=== PATIENT | male | born 1955 | race Caucasian/White ===

== ENCOUNTER 2019-10-12 19:27 | Observation (INO) | payer BC ==
[~2019-10-12 19:27] MED LIST: GLYCOPYRROLATE 1 MG/5 ML VIAL ONE; NEOSTIGMINE METHYLSULFATE 10 MG/10 ML VIAL ONE; PHENYLEPHRINE HCL INJ/PF 10 MG/1 ML SDV ONE
[2019-10-12] MEDS ORDERED: DEXTROSE 5%-LACTATED RINGERS 1,000 ML IV PRN (19:48)
[2019-10-12 20:02] LABS: ABSOLUTE BASOPHILS # (AUTO) 0.1 10^3/uL (0.0-0.2); ABSOLUTE EOSINOPHILS # (AUTO) 0.1 10^3/uL (0.0-0.6); ABSOLUTE LYMPHOCYTES (AUTO) 2.5 10^3/uL (0.5-4.7); ABSOLUTE MONOCYTES (AUTO) 1.7 10^3/uL (0.1-1.4); ABSOLUTE NEUT (AUTO) 12.5 10^3/uL (1.7-8.2); BASOPHILS % (AUTO) 0.4 % (0-2); EOSINOPHILS % (AUTO) 0.3 % (0-6); HEMATOCRIT 42.1 % (37.9-51.0); HEMOGLOBIN 14.7 g/dL (13.5-17.0); LYMPHOCYTES % (AUTO) 14.9 % (13-45); MEAN CORPUSCULAR HEMOGLOBIN 32.6 pg (27.0-33.4); MEAN CORPUSCULAR HGB CONC 34.9 g/dL (32.0-36.0); MEAN CORPUSCULAR VOLUME 94 fl (80-97); PLATELET COUNT 223 10^3/uL (150-450); RED CELL DISTRIBUTION WIDTH 12.6 % (11.5-14.0); SEGMENTED NEUTROPHILS % (AUTO) 74.4 % (42-78); TOTAL CELLS COUNTED % (AUTO) 100 %; WHITE BLOOD COUNT 16.8 10^3/uL (4.0-10.5)
[2019-10-12] MEDS ORDERED: RINGERS SOLUTION,LACTATED 1,000 ML IV PRN (20:06)
--- NOTE | 2019-10-12 20:23 | PDOC H&P ---
History of Present Illness Admission Date/PCP: 10/12/19 19:27 Patient complains of: abdominal pain History of Present Illness: LAURENT DAS is a 64 year old male Patient presents to [facility] for direct admit complaining of a 1 day history of abdominal pain, minimal anorexia, pain localizing to the right lower quadrant with tenderness. 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 He obtained a CT scan of the abdomen and pelvis which reportedly shows acute appendicitis, specifically periappendiceal stranding, thickened appendiceal wall, no evidence of perforation. The patient appendectomy at [facility]. Denies history of trauma, previous GI symptoms, constipation, or previous abdominal surgery. Past Medical History Past Medical History: Hypertension, SVT, controlled Past Surgical History Past Surgical History: Orthopedic surgery Social History Information Source: Patient Smoking Status: Never Smoker Electronic Cigarette use?: No Frequency of Alcohol Use: Rare Hx Recreational Drug Use: No Hx Prescription Drug Abuse: No Family History Family History: None Parental Family History Reviewed: No Children Family History Reviewed: No Sibling(s) Family History Reviewed.: No Review of Systems ROS unobtainable: Other - No acute distress Constitutional: PRESENT: other - Denies chills Eyes: ABSENT: visual disturbances Ears: ABSENT: hearing changes Cardiovascular: ABSENT: chest pain, dyspnea on exertion, edema, orthropnea, palpitations Respiratory: ABSENT: cough, hemoptysis Gastrointestinal: PRESENT: as per HPI Genitourinary: ABSENT: dysuria, hematuria Musculoskeletal: ABSENT: joint swelling Integumentary: ABSENT: rash, wounds Neurological: ABSENT: abnormal gait, abnormal speech, confusion, dizziness, focal weakness, syncope Endocrine: ABSENT: cold intolerance, heat intolerance, polydipsia, polyuria Hematologic/Lymphatic: ABSENT: easy bleeding, easy bruising Physical Exam General appearance: PRESENT: no acute distress Head exam: PRESENT: normocephalic Eye exam: PRESENT: EOMI Mouth exam: PRESENT: dry mucosa Neck exam: PRESENT: full ROM Respiratory exam: PRESENT: clear to auscultation aiden Cardiovascular exam: PRESENT: RRR Pulses: PRESENT: normal carotid pulses, normal radial pulses, normal femoral pulses, normal dorsalis pedis pul GI/Abdominal exam: PRESENT: other - Soft, tender localized right lower quadrant, with mild guarding, no rigidity. No umbilical hernia, no groin hernias. Rectal exam: PRESENT: deferred Extremities exam: PRESENT: full ROM Musculoskeletal exam: PRESENT: full ROM Neurological exam: PRESENT: alert, oriented to person, oriented to place, oriented to time, oriented to situation Psychiatric exam: PRESENT: appropriate affect Skin exam: PRESENT: dry Results Laboratory Results: 10/12/19 19:50 10/12/19 19:50 WBC 16.8 H RBC 4.50 Hgb 14.7 Hct 42.1 MCV 94 MCH 32.6 MCHC 34.9 RDW 12.6 Plt Count 223 Seg Neutrophils % 74.4 Impressions: CT scan reviewed with radiologist from [place]. No IV contrast; paucity of oral contrast. The appendix is dilated up to 1.5 cm with minimal periappendiceal stranding; no evidence of perforation abscess or free air. There is a minimal fluid in the right paracolic gutter. Assessment & Plan - Diagnosis (1) Acute appendicitis Is this a current diagnosis for this admission?: Yes Plan: Impression: Acute appendicitis based on clinical history, physical exam findings leukocytosis and CT scan findings consistent with acute appendicitis Recommendations: 1. Admit, IV fluids, check EKG and laboratory profile. 2. Plan interval laparoscopic, possible open appendectomy, general anesthesia, possible drain. The mechanics of the operation as well as an explanation of risk benefits and alternatives were explained to patient. Patient expresses understanding and agrees to proceed. (2) Leukocytosis Is this a current diagnosis for this admission?: Yes - Time Time Spent: 30 to 50 Minutes Medications reviewed and adjusted accordingly: Yes Anticipated discharge: Home - Inpatient Certification Based on my medical assessment, after consideration of the patient's comorbidities, presenting symptoms, or acuity I expect that the services needed warrant INPATIENT care.: Yes I certify that my determination is in accordance with my understanding of Medicare's requirements for reasonable and necessary INPATIENT services [42 CFR 412.3e].: Yes Medical Necessity: Need For IV Fluids, Need for IV Antibiotics, Need for Surgery
[2019-10-12 20:24] LABS: ANION GAP 9 (5-19); BLOOD UREA NITROGEN 12 mg/dL (7-20); CALCIUM 8.9 mg/dL (8.4-10.2); CARBON DIOXIDE 27 mmol/L (22-30); CHLORIDE 101 mmol/L (98-107); GLUCOSE 82 mg/dL (75-110); POTASSIUM 3.9 mmol/L (3.6-5.0)
[2019-10-12] MEDS ORDERED: FENTANYL CITRATE INJ/PF 100 MCG/2 ML AMPUL ONE (20:45)
[2019-10-12] MEDS ORDERED: LIDOCAINE 2% INJ-PF (20 MG/ML) 10 ML AMPUL ONE (20:45)
[2019-10-12] MEDS ORDERED: BUPIVACAINE HCL 0.25 % INJ/PF (2.5 MG/1 ML) 30 ML VIAL ONE (20:45)
[2019-10-12] MEDS ORDERED: DEXAMETHASONE SOD PHOSPHATE INJ 4 MG/1 ML VIAL ONE (20:46)
[2019-10-12] MEDS ORDERED: ONDANSETRON HCL INJ/PF 4 MG/2 ML SDV ONE (20:46)
[2019-10-12] MEDS ORDERED: CEFAZOLIN INJ 1 GM VIAL ONE (20:46)
[2019-10-12] MEDS ORDERED: HYDROMORPHONE HCL INJ/PF 2 MG/ML AMPULE ONE (20:46)
[2019-10-12] MEDS ORDERED: PROPOFOL INJ 200 MG/20 ML VIAL IV ONE (20:46)
[2019-10-12] MEDS ORDERED: MIDAZOLAM 2 MG/2 ML INJ ONE (20:46)
[2019-10-12] MEDS ORDERED: KETOROLAC TROMETHAMINE INJ/PF 30 MG/1 ML SDV IV PRN (22:11)
[2019-10-12] MEDS ORDERED: ONDANSETRON HCL INJ/PF 4 MG/2 ML SDV IV PRN (22:11)
[2019-10-12] MEDS ORDERED: OXYCODONE-ACETAMINOPHEN 5-325 MG TABLET PO PRN (22:11)
--- NOTE | 2019-10-12 22:19 | Operative Report ---
Operative Report DATE OF SURGERY: 10/12/19 PREOPERATIVE DIAGNOSIS: Acute appendicitis POSTOPERATIVE DIAGNOSIS: Same OPERATION: Laparoscopic appendectomy SURGEON: LAURENT MONROY ANESTHESIA: GA TISSUE REMOVED OR ALTERED: one appendix COMPLICATIONS: None ESTIMATED BLOOD LOSS: Scant INTRAOPERATIVE FINDINGS: See below PROCEDURE: Patient was taken from the holding area to the negative pressure intubation room where endotracheal intubation was established. After approximately 12 minutes, the patient was successfully transferred to operating room 1 where he was placed on the operating table, arms abducted, abdominal wall clipped of hair, and then prepped and draped with Betadine in a sterile fashion. Surgical plan and surgical timeout were conducted. Markings were made on the skin for 3 port laparoscopy. All 3 sites were anesthetized with quarter percent Marcaine. A supraumbilical linear incision was made with a #15 blade approximately 1-1/2 cm in length. A Veress needle was inserted into the peritoneal cavity, pneumoperitoneum was established. Veress needle was removed, and a 5 mm port was inserted and a 5 mm flexible viewing scope was inserted. Visualization of the peritoneal cavity revealed no evidence of vascular or visceral injury. Inspection of the right lower quadrant revealed the appendix oriented caudally, adhesed to the retroperitoneum. 2 additional ports were placed 1 5 mm suprapubic position and a 12 mm in the left lower quadrant. The patient was placed in steep Trendelenburg, and airplane to the left side. Small bowel was moved out of the field, and the appendix was grasped. Using hook cautery dissection under gentle traction, the adhesed appendix was released from the retroperitoneum. We now opened the mesoappendix at the base of the appendix, and brought onto the field a 45 mm Ethicon blue load endostapler. This was applied across the base of the appendix and fired successfully. We now deployed the stapler a second time with a blue load refill, firing across the mesoappendix. Freed up appendix was placed in Endobag and brought out of the patient to the left lower quadrant port site. We checked for bleeding from the staple line and there was none, however there is a small venous bleeder on the retroperitoneum which was managed with cautery. We then placed a small piece of Surgicel right over this area. We now leveled the patient out after aspirating a minimal amount of seropurulent fluid from the right lower quadrant. There were a few adhesions between the rectum and the anterior abdominal wall which were photographed. The gallbladder appeared unremarkable. We reinspected our staple line and the Surgicel placed over the retroperitoneum and there is no further bleeding. We felt the operation was complete. Sponge and needle counts are correct. All ports removed under direct visualization, fascial defects at the umbilicus and the left lower quadrant closed with 0 Vicryl suture, and all wounds closed with 3-0 Vicryl benzoin and Steri-Strips. Patient tolerated procedure well, extubated, taken to the recovery room in stable condition.
[2019-10-13] MEDS ORDERED: ACETAMINOPHEN INJ/PF 1000 MG/100 ML SDV IV SCH
[2019-10-13 01:18] VITALS: BP 130/80
[2019-10-13] MEDS ORDERED: CEFAZOLIN IV SCH (05:00)
[2019-10-13] MEDS ORDERED: DEXTROSE IV SCH (05:00)
--- NOTE | 2019-10-13 10:59 | EKG REPORT ---
SEVERITY:- NORMAL ECG - SINUS RHYTHM : Confirmed by: Maru Paul 13-Oct-2019 10:58:56
== END 2019-10-13 00:45 | disposition home or self-care (01) ==
LOC: 4N 19:27
PROVIDERS: ADMIT Surgery; ATTEND Surgery
DX: K35.80 Unspecified acute appendicitis (principal); D72.829 Elevated white blood cell count, unspecified
CPT/HCPCS: 36415; 85025; 80048; 88304 ×2; 93005; 93010; 44970; G0378 ×2; G0379; J2250; J0690; J1100; J3010; J2710; J2370; J2405; J7121; J2704; J3490 ×2; J1170

== ENCOUNTER → 2020-07-16 | Outpatient (CLI) | payer BC ==
[~2020-07-16] MED LIST changes: +COVID-19 VACCINE (PFIZER)/PF 30 MCG/0.3 ML VIAL IM ONE; +EPINEPHRINE INJ/PF 1 MG/1 ML AMPULE IM PRN; -GLYCOPYRROLATE 1 MG/5 ML VIAL ONE; -NEOSTIGMINE METHYLSULFATE 10 MG/10 ML VIAL ONE; -PHENYLEPHRINE HCL INJ/PF 10 MG/1 ML SDV ONE
== END ==
LOC: EMPHEALTH 08:12
PROVIDERS: ATTEND Internal Medicine
DX: Z23 Encounter for immunization (principal)
CPT/HCPCS: 91300

== ENCOUNTER → 2020-08-05 | Outpatient (CLI) | payer BC | LOC: EMPHEALTH 14:03 | PROVIDERS: ATTEND Internal Medicine | DX: Z23 Encounter for immunization (principal) | CPT/HCPCS: 91300 ==